=== PATIENT | female | born 1995 | race Caucasian/White ===

== ENCOUNTER 2023-06-27 20:52 | Emergency (ER) | payer BC, SELFPAY ==
[2023-06-27 20:57] VITALS: BP 140/88; PULSE 88; RESP 16; TEMP 36.6; O2SAT 98; BMI 29.3
[2023-06-27] MEDS: lidocaine HCL 2 % MULTIDOSE 20 ML VIAL INJECTION (21:10)
--- NOTE | 2023-06-27 21:14 | ED.GENADULT ---
HPI - General Adult General Chief complaint: Laceration/Wound Stated complaint: R hand lac Time Seen by Provider: 06/27/23 21:03 History of Present Illness HPI narrative: patient is a 28-year-old woman who pinched the base for her right thumb posteriorly in the oven door while cleaning her other than tonight. She is up-to-date on her tetanus shot but suffered a 3 cm laceration. She cleaned the wound aggressively. She has no neural muscular or vascular abnormalities. She is otherwise feeling well. Related Data Home Medications Medication Instructions Recorded Confirmed No Known Home Medications 06/27/23 06/27/23 Allergies Allergy/AdvReac Type Severity Reaction Status Date / Time No Known Drug Allergies Allergy Verified 06/27/23 20:59 Review of Systems Status of ROS: Reports: 10 or more systems reviewed and unremarkable except as noted in History and below PFSH PFS Social History Smoking Status: Never smoker Do you use any of these nicotine containing products: None How often do you have a drink containing alcohol: never AUDIT-C Alcohol total score: 0 Non-prescribed substance use: denies use Exam Narrative: Exam Narrative: EXAM GENERAL: Patient appears comfortable and well. EYES: No scleral icterus. LYMPH: No supraclavicular or cervical lymphadenopathy. SKIN: Linear laceration noted as above right posterior thumb near the thenar eminence. EXT: No dependent lower extremity pedal edema. PSYCH: Good eye contact, speech is not pressured. Const: Vital Signs, click to edit/add: Vital Signs - 24 hr 06/27/23 20:57 Temperature 97.9 F Pulse Rate [Pulse Oximeter] 88 Respiratory Rate 16 Blood Pressure [Ri ght Upper Arm] 140/88 H Pulse Oximetry 98 Oxygen Delivery Me thod Room Air Course Course ED Course: Patient seen examined. Wound was carefully washed. I did anesthetize the region with approximately 2 mL of 1% lidocaine with epinephrine. I then carefully closed the defect using 3 running 3-0 Ethilon sutures. Wound care was explained patient will follow-up for suture removal in approximately 10 days. Vital Signs Vital signs: Initial Vital Signs Temperature 97.9 F 06/27/23 20:57 Temperature Source Temporal Artery Scan 06/27/23 20:57 Pulse Rate 88 06/27/23 20:57 Pulse Rhythm Regular 06/27/23 20:57 Respiratory Rate 16 06/27/23 20:57 Blood Pressure 140/88 H 06/27/23 20:57 Blood Pressure Mean 105 06/27/23 20:57 Blood Pressure Position Sitting 06/27/23 20:57 Pulse Oximetry 98 06/27/23 20:57 Oxygen Delivery Method Room Air 06/27/23 20:57 Vital Signs Temperature 97.9 F 06/27/23 20:57 Pulse Rate 88 06/27/23 20:57 Respiratory Rate 16 06/27/23 20:57 Blood Pressure 140/88 H 06/27/23 20:57 Pulse Oximetry 98 06/27/23 20:57 Oxygen Delivery Method Room Air 06/27/23 20:57 Temperature 97.9 F 06/27/23 20:57 Pulse Rate 88 06/27/23 20:57 Respiratory Rate 16 06/27/23 20:57 Blood Pressure 140/88 H 06/27/23 20:57 Pulse Oximetry 98 06/27/23 20:57 Oxygen Delivery Method Room Air 06/27/23 20:57 Medical Decision Making MDM Narrative Medical decision making narrative: As above. Discharge Plan Discharge Clinical Impression: Laceration Patient Disposition: Home, Self-Care Condition: Stable Additional Instructions: keep wound clean and covered. Follow-up in approximately 10 days for suture removal. Activity Level: No Restrictions Discharge Diet: Regular Prescriptions: No Action No Known Home Medications Stand Alone Forms: MyHealth Info Instructions
[2023-06-27 21:28] VITALS: BP 135/80; PULSE 84; RESP 16; TEMP 36.6; O2SAT 98
== END 2023-06-27 21:34 | disposition home or self-care (01) ==
LOC: ED 21:32
PROVIDERS: Emergency Provider Internal Medicine
DX: S61.011A Laceration without foreign body of right thumb without damage to nail, initial encounter (principal); W26.9XXA Contact with unspecified sharp object(s), initial encounter
CPT/HCPCS: 12002; 99283